=== PATIENT | male | born 1970 | race Caucasian/White ===

== ENCOUNTER 2018-12-14 10:26 | Emergency (ER) | payer BC, OTHER ==
[2018-12-14] MEDS ORDERED: KETOROLAC TROMETHAMINE 30 MG/ML SOL IM ONE (11:09)
[2018-12-14] MEDS ORDERED: SOLUMEDROL 125 MG/2 ML 125 MG/2 ML PDS IM ONE (11:09)
[2018-12-14 11:10] VITALS: BP 125/95; PULSE 89; RESP 16; TEMP 96; O2SAT 97
[2018-12-14] MEDS ORDERED: SOLUMEDROL 125 MG/2 ML 125 MG/2 ML PDS ONE (11:13)
[2018-12-14] MEDS ORDERED: KETOROLAC TROMETHAMINE 30 MG/ML SOL ONE ×2 (11:13→11:15)
== END 2018-12-14 11:34 | disposition home or self-care (01) ==
LOC: ED 10:26
DX: M54.5 Low back pain (principal)
CPT/HCPCS: 96372; 99282; 99283; J1885; J2930